=== PATIENT | male | born 1950 | race Caucasian/White ===

== ENCOUNTER 2017-01-01 00:26 | Emergency (ER) | payer MEDICARE, OTHER ==
[~2017-01-01] VITALS: Ht 170.2 cm; Wt 72.7 kg
[~2017-01-01 00:26] MED LIST: ALLERGY SHOTS; AMITRIPTYLINE H10 MG PO; AMOXICILLIN 50500 MG PO; AMOXICILLIN 8751 TAB PO; ATIVAN 1MG T1 MG/TAB PO; ATIVAN0.5 MG PO; AVELOX; BUPROPION HYDR150 M1 PO; CELEXA20 MG PO; CEPHALEXIN500 M1 PO; CITALOPRAM HYDR20 MG PO; COLACE 100100 MG/CAP PO; CYANOCOBAL1000 MCG/1 IM; DARVOCET N; DEPAKOTE DR500 MG PO; DEPO-TESTOS200 MG/M1 IM; DESYREL DIVIDO150 M1 PO; DILAUDID 2MG TAB2 MG PO; ELAVIL10 MG PO; EPI-PEN1 MG/ML MR; FERROUS SU325 MG/TAB PO; FIORICET 325 MG1 TA1 PO; FLEXERIL 1010 MG/TAB PO; FLOMAX 0.40.4 MG/CAP PO; FLONASE NASAL S16 GM NS; FLONASEALLERGY NS; GABAPENTIN100 M1 PO; GABAPENTIN600 MG PO; HCTZ 25MG25 MG PO; LABETALOL PO; LEVOTHYROXINE PO; LEVOTHYROXINE0.1 MG PO; LISINOPRIL10 MG PO; NASAL SPRAY 1515 ML NS; NORCO 325 MG-51 TAB PO; NORVASC 10MG10 MG PO; PAMELOR 25MG25 MG PO; PERCOCET 325 MG1 TA2 PO; PERCOCET 325 MG1 TA3 PO; PERCOCET 325 MG1 TAB PO; PERCOCET 5/321 UDTAB PO; PERCOCET 650 MG1 TAB PO; PERCR 7.5 PO; PHENERGAN 25 TA25 MG PO; PHENERGAN25 MG RC; PREDNISONE1 MG PO; PREDNISONE10 MG PO; PREDNISONE20 MG PO; PRINIVIL10 MG PO; PRINIVIL20 MG PO; PRISTIQ50 MG; PYRIDIUM 100MG100 MG PO; SENNA-GEN8.6 MG PO; SEROQUEL; SINGULAIR 110 MG/TAB PO; STATIN; SYNTHROID0.1 MG/TAB PO; TEGRETOL; TRAZODONE100 MG PO; UNKNOWN BP MED; VALTREX PO; WELLBUTRIN 100100 MG PO; WELLBUTRIN SR150 M1 PO; ZESTRIL 10MG10 MG PO; ZESTRIL10 MG PO; ZOLOFT 100MG100 MG PO; ZYRTEC5 MG PO; [UNRECOGNIZED DRUG - REMARK]
[2017-01-01 00:28] VITALS: TEMP 98.1
[2017-01-01] MEDS ORDERED: PERCOCET 325 MG1 TA3 PO (01:41)
[2017-01-01 02:26] VITALS: BP 169/98; PULSE 68
== END 2017-01-01 02:30 | disposition home or self-care (01) ==
LOC: COL.ER 00:26
DX: S22.41XD Multiple fractures of ribs, right side, subsequent encounter for fracture with routine healing (principal); W07.XXXD Fall from chair, subsequent encounter; I10 Essential (primary) hypertension
CPT/HCPCS: J1170; J1885

== ENCOUNTER → 2017-01-14 | Outpatient (CLI) | payer MEDICARE, OTHER ==
[~2017-01-14] MED LIST changes: +ULTRAM 50MG TAB50 MG PO
== END ==
LOC: BHSO 15:13
DX: F33.42 Major depressive disorder, recurrent, in full remission (principal)

== ENCOUNTER 2017-01-26 14:00 | Emergency (ER) | payer MEDICARE, OTHER ==
[~2017-01-26] VITALS: Ht 170.2 cm; Wt 70.5 kg
[~2017-01-26 14:00] MED LIST changes: -ULTRAM 50MG TAB50 MG PO
[2017-01-26 14:02] VITALS: BP 152/89; TEMP 97.5
[2017-01-26] MEDS ORDERED: NORCO 325 MG-51 TAB PO (15:13)
[2017-01-26 15:33] VITALS: PULSE 75
== END 2017-01-26 15:34 | disposition home or self-care (01) ==
LOC: COL.ER 14:00
DX: S46.912A Strain of unspecified muscle, fascia and tendon at shoulder and upper arm level, left arm, initial encounter (principal); X50.0XXA Overexertion from strenuous movement or load, initial encounter; Y92.009 Unspecified place in unspecified non-institutional (private) residence as the place of occurrence of the external cause; I10 Essential (primary) hypertension

== ENCOUNTER 2017-02-27 10:59 | Emergency (ER) | payer MEDICARE, OTHER ==
[~2017-02-27] VITALS: Ht 170.2 cm; Wt 72.7 kg
[2017-02-27 11:01] VITALS: TEMP 98
[2017-02-27] MEDS ORDERED: NORCO 325 MG-51 TAB PO (11:51)
[2017-02-27 12:08] VITALS: BP 164/89; PULSE 63
== END 2017-02-27 12:09 | disposition home or self-care (01) ==
LOC: COL.ER 10:59
DX: M25.512 Pain in left shoulder (principal)
CPT/HCPCS: J1885

== ENCOUNTER 2017-03-10 10:16 | Day surgery (SDC) | payer MEDICARE, OTHER ==
[~2017-03-10] VITALS: Ht 170.2 cm; Wt 73.6 kg
[2017-03-10 11:02] VITALS: BP 145/80; PULSE 60; TEMP 97.4
[2017-03-10 15:20] VITALS: BP 134/59; PULSE 52; TEMP 97.2
[2017-03-10 15:35] VITALS: BP 134/68; PULSE 51
[2017-03-10 15:50] VITALS: BP 149/79; PULSE 47
[2017-03-10] MEDS ORDERED: PHENERGAN 25 TA25 MG PO (15:52)
[2017-03-10] MEDS ORDERED: PERCOCET 325 MG1 TA3 PO (15:52)
[2017-03-10] MEDS ORDERED: CEPHALEXIN500 M1 PO (15:53)
[2017-03-10 16:05] VITALS: BP 148/66; PULSE 52
[2017-03-10 16:20] VITALS: BP 153/65; PULSE 71
== END 2017-03-10 16:58 | disposition home or self-care (01) ==
LOC: SDCO 10:16
DX: M20.12 Hallux valgus (acquired), left foot (principal); M20.42 Other hammer toe(s) (acquired), left foot; M72.2 Plantar fascial fibromatosis
CPT/HCPCS: C1713; J0690; J2704; J3010; J3301; J7120

== ENCOUNTER 2017-03-24 03:03 | Observation (INO) | payer MEDICARE, OTHER ==
[2017-03-24] VITALS (8 sets, daily range): BP systolic 129–181; BP diastolic 72–93; PULSE 59–88; TEMP 97–97.9
[~2017-03-24] VITALS: Ht 170.2 cm; Wt 72.5 kg
[2017-03-24 03:38] LABS: BASO % 0.3 % (0.0-2.0); EOS # 0.5 (0.0-0.7); EOS % 4.3 % (0-4.0); GRAN # 7.8 (1.4-6.5); GRAN % 66.4 % (42.2-75.2); HEMATOCRIT 41.6 % (42.0-52.0); HEMOGLOBIN 14.4 g/dl (13.5-18.0); LYMPH # 2.2 (1.2-3.4); LYMPH % 18.3 % (20.0-51.0); MEAN CELL VOLUME 101 fl (80.0-100.0); MEAN CORPUSCULAR HEMOGLOBIN 35 pg (27.0-31.0); MEAN CORPUSCULAR HGB CONC 35 g/dl (33.0-37.0); MEAN PLATELET VOLUME 9.9 fl (7.4-10.4); MONO # 1.2 (0.1-0.6); MONO % 10.1 % (1.7-9.3); PLATELET COUNT 273 K/mm3 (130-400); RED BLOOD COUNT 4.12 M/mm3 (4.20-5.60); REDCELL DISTRIBUTION WIDTH-CV 12.3 % (11.5-14.5); WHITE BLOOD COUNT 11.7 K/mm3 (4.8-10.8)
[2017-03-24 03:50] LABS: ADJUSTED CALCIUM 9.5 mg/dL (8.4-10.2); ALANINE AMINOTRANSFERASE 24 U/L (21-72); ALBUMIN 3.9 gm/dL (3.5-5.0); ALKALINE PHOSPHATASE 132 U/L (50-136); ANION GAP 11 mmol/L (7-16); BILIRUBIN,TOTAL 0.6 mg/dL (0.0-1.0); BLOOD UREA NITROGEN 29 mg/dL (9-20); C-REACTIVE PROTEIN < 0.5 mg/dL (0.0-0.9); CALCIUM 9.4 mg/dL (8.4-10.2); CARBON DIOXIDE 26 mmol/L (22-30); CHLORIDE 104 mmol/L (98-107); CREATININE, serum 1.12 mg/dL (0.66-1.25); GLUCOSE 122 mg/dL (74-106); POTASSIUM 4.7 mmol/L (3.4-5.0); SODIUM 142 mmol/L (137-145); TOTAL PROTEIN 6.9 gm/dL (6.4-8.2)
[2017-03-24 05:00] LABS: PH 6 (5-8); SQUAMOUS EPITHELIAL None Seen /hpf; URINE APPEARANCE Clear; URINE BACTERIA None Seen /hpf; URINE BILIRUBIN Negative (NEGATIVE); URINE BLOOD Negative (NEGATIVE); URINE COLOR Yellow; URINE GLUCOSE Negative (NEGATIVE); URINE KETONE Negative (NEGATIVE); URINE RBC 0-2 /hpf; URINE UROBILINOGEN Negative (NEGATIVE); URINE WBC 0-2 /hpf
== END 2017-03-24 19:45 | disposition home or self-care (01) ==
LOC: COL.ER 03:03 → SURG 04:23
PROVIDERS: Emergency Medicine
DX: N20.0 Calculus of kidney (principal); I10 Essential (primary) hypertension; E03.9 Hypothyroidism, unspecified; E78.00 Pure hypercholesterolemia, unspecified
CPT/HCPCS: C1769; C1894; C2617; G0378; J0690; J1100; J1170; J1885; J2405; J2704; J3010; J7030; J7120; Q9967

== ENCOUNTER 2017-03-29 22:51 | Emergency (ER) | payer MEDICARE, OTHER ==
[~2017-03-29] VITALS: Ht 170.2 cm; Wt 72.7 kg
[2017-03-29 22:54] VITALS: TEMP 97.8
[2017-03-30 00:07] VITALS: BP 132/76; PULSE 90
== END 2017-03-30 00:16 | disposition home or self-care (01) ==
LOC: COL.ER 22:51
DX: G89.29 Other chronic pain (principal); M25.512 Pain in left shoulder
CPT/HCPCS: J1885

== ENCOUNTER 2017-04-17 22:55 | Emergency (ER) | payer MEDICARE, OTHER ==
[~2017-04-17] VITALS: Ht 152.4 cm; Wt 72.7 kg
[2017-04-17 22:56] VITALS: BP 159/96; TEMP 96.8
[2017-04-17] MEDS ORDERED: NORCO 325 MG-51 TAB PO (23:58)
[2017-04-18 00:07] VITALS: PULSE 71
== END 2017-04-18 00:09 | disposition home or self-care (01) ==
LOC: COL.ER 22:55
DX: G89.18 Other acute postprocedural pain (principal); M79.675 Pain in left toe(s); I10 Essential (primary) hypertension; N40.0 Benign prostatic hyperplasia without lower urinary tract symptoms; E03.9 Hypothyroidism, unspecified
CPT/HCPCS: J1885

== ENCOUNTER 2017-04-21 18:56 | Emergency (ER) | payer MEDICARE, OTHER ==
[~2017-04-21] VITALS: Ht 170.2 cm; Wt 72.7 kg
[2017-04-21 18:58] VITALS: BP 166/99; PULSE 91; TEMP 97.6
== END 2017-04-21 19:49 | disposition home or self-care (01) ==
LOC: COL.ER 18:56
DX: T81.4XXA Infection following a procedure, initial encounter (principal); L08.9 Local infection of the skin and subcutaneous tissue, unspecified; I10 Essential (primary) hypertension; Z87.891 Personal history of nicotine dependence; I25.10 Atherosclerotic heart disease of native coronary artery without angina pectoris

== ENCOUNTER → 2017-04-24 | Outpatient (CLI) | payer MEDICARE, OTHER ==
[~2017-04-24] MED LIST changes: +ULTRAM 50MG TAB50 MG PO
== END ==
LOC: BHSO 08:32
DX: F33.42 Major depressive disorder, recurrent, in full remission (principal)

== ENCOUNTER 2017-06-02 23:21 | Emergency (ER) | payer MEDICARE, OTHER ==
[~2017-06-02] VITALS: Ht 170.2 cm; Wt 72.7 kg
[~2017-06-02 23:21] MED LIST changes: -ULTRAM 50MG TAB50 MG PO
[2017-06-02 23:23] VITALS: BP 172/85; TEMP 97.9
[2017-06-03 00:13] VITALS: PULSE 64
== END 2017-06-03 00:14 | disposition home or self-care (01) ==
LOC: COL.ER 23:21
DX: M25.512 Pain in left shoulder (principal)
CPT/HCPCS: J1885

== ENCOUNTER → 2017-06-20 | Outpatient (CLI) | payer MEDICARE, OTHER ==
[~2017-06-20] MED LIST changes: +ULTRAM 50MG TAB50 MG PO
== END ==
LOC: BHSO 09:07
DX: F33.41 Major depressive disorder, recurrent, in partial remission (principal)

== ENCOUNTER → 2017-07-18 | Outpatient (CLI) | payer MEDICARE, OTHER | LOC: BHSO 09:07 | DX: F33.41 Major depressive disorder, recurrent, in partial remission (principal) ==

== ENCOUNTER 2017-07-25 15:57 | Emergency (ER) | payer MEDICARE, OTHER ==
[~2017-07-25] VITALS: Ht 172.7 cm; Wt 72.7 kg
[~2017-07-25 15:57] MED LIST changes: -ULTRAM 50MG TAB50 MG PO
[2017-07-25 16:00] VITALS: BP 181/87; PULSE 91; TEMP 97.6
[2017-07-25] MEDS ORDERED: ULTRAM 50MG TAB50 MG PO (16:27)
== END 2017-07-25 16:31 | disposition home or self-care (01) ==
LOC: COL.ER 15:57
DX: S46.912A Strain of unspecified muscle, fascia and tendon at shoulder and upper arm level, left arm, initial encounter (principal); Z90.89 Acquired absence of other organs; Z87.442 Personal history of urinary calculi; Z87.891 Personal history of nicotine dependence; X58.XXXA Exposure to other specified factors, initial encounter
CPT/HCPCS: J1885

== ENCOUNTER 2017-08-18 19:34 | Emergency (ER) | payer MEDICARE, OTHER ==
[~2017-08-18] VITALS: Ht 170.2 cm; Wt 72.7 kg
[~2017-08-18 19:34] MED LIST changes: +ULTRAM 50MG TAB50 MG PO
[2017-08-18 19:47] VITALS: BP 166/98; TEMP 97.7
[2017-08-18 22:33] VITALS: PULSE 70
== END 2017-08-18 22:20 | disposition home or self-care (01) ==
LOC: COL.ER 19:34
DX: M25.512 Pain in left shoulder (principal); I10 Essential (primary) hypertension
CPT/HCPCS: J1170; J1885

== ENCOUNTER → 2017-09-17 | Outpatient (CLI) | payer MEDICARE, OTHER | LOC: BHSO 15:30 | DX: F33.41 Major depressive disorder, recurrent, in partial remission (principal) ==

== ENCOUNTER 2017-09-19 12:30 | Emergency (ER) | payer MEDICARE, OTHER ==
[2017-09-19 12:37] VITALS: BP 142/84; PULSE 72; TEMP 97.7
== END 2017-09-19 12:43 | disposition home or self-care (01) ==
LOC: COL.ER 12:30
DX: S61.216D Laceration without foreign body of right little finger without damage to nail, subsequent encounter (principal); X58.XXXD Exposure to other specified factors, subsequent encounter

== ENCOUNTER → 2017-10-06 | Outpatient (CLI) | payer MEDICARE, OTHER ==
[~2017-10-06] MED LIST changes: +BACTRIM DS 8001 TAB PO
== END ==
LOC: BHSO 08:01
DX: F33.42 Major depressive disorder, recurrent, in full remission (principal)

== ENCOUNTER 2017-10-15 23:50 | Emergency (ER) | payer MEDICARE, OTHER ==
[~2017-10-15] VITALS: Ht 172.7 cm; Wt 75.7 kg
[2017-10-15 23:52] VITALS: TEMP 97.7
[2017-10-16 00:58] VITALS: BP 156/88; PULSE 67
== END 2017-10-16 01:02 | disposition home or self-care (01) ==
LOC: COL.ER 23:50
DX: M70.51 Other bursitis of knee, right knee (principal)
CPT/HCPCS: J1170; J1885

== ENCOUNTER → 2017-12-17 | Outpatient (CLI) | payer MEDICARE, OTHER | LOC: BHSO 15:36 | DX: F41.1 Generalized anxiety disorder (principal) | CPT/HCPCS: G0463 ==

== ENCOUNTER → 2018-01-05 | Outpatient (CLI) | payer MEDICARE, OTHER | LOC: BHSO 08:03 | DX: F33.42 Major depressive disorder, recurrent, in full remission (principal) | CPT/HCPCS: G0463 ==

== ENCOUNTER → 2018-02-17 | Outpatient (CLI) | payer MEDICARE, OTHER | LOC: BHSO 15:27 | DX: F33.42 Major depressive disorder, recurrent, in full remission (principal) | CPT/HCPCS: G0463 ==

== ENCOUNTER → 2018-05-14 | Outpatient (CLI) | payer MEDICARE, OTHER | LOC: BHSO 15:41 | DX: F33.42 Major depressive disorder, recurrent, in full remission (principal) | CPT/HCPCS: G0463 ==